=== PATIENT | male | born 1960 | race Two or more races ===

== ENCOUNTER → 2020-01-25 | Day surgery (SDC) | payer OTHER ==
[~2020-01-25] MED LIST: ZYRTEC10 M3 PO
== END | disposition home or self-care (01) ==
LOC: ADM 01-20 07:00 → CIR.AMB 07:00
PROVIDERS: ATTEND Surgery
DX: N52.01 Erectile dysfunction due to arterial insufficiency (principal)
CPT/HCPCS: 54405; C1813